=== PATIENT | female | born 1950 | race Caucasian/White ===

== ENCOUNTER 2020-11-15 21:17 | Emergency (ER) | payer OTHER ==
[~2020-11-15] VITALS: Ht 154.9 cm; Wt 72.6 kg
[~2020-11-15 21:17] MED LIST: CLOP75TA PO
--- NOTE | 2020-11-15 21:40 | NUR ---
TO LOBBY A/W BED AMBULATORY
[2020-11-15 21:46] VITALS: BP 159/78
[2020-11-15] MEDS ORDERED: ONDANSETRON 4 MG ODT PO ONE (22:00)
--- NOTE | 2020-11-15 22:00 | NUR ---
SEEN AND EXAMINED BY JAMES WITH ORDERS AND CARRIED OUT
--- NOTE | 2020-11-15 22:40 | NUR ---
MEDICATED PER ERMDS ORDER, TOLERATED WELL
[2020-11-15 23:50] VITALS: BP 128/80
== END 2020-11-15 23:50 | disposition home or self-care (01) ==
LOC: MED 21:17
DX: R11.2 Nausea with vomiting, unspecified (principal)
CPT/HCPCS: 99283; Q0162

== ENCOUNTER 2021-06-12 13:01 | Emergency (ER) | payer OTHER ==
[~2021-06-12] VITALS: Ht 157.5 cm; Wt 57.6 kg
[2021-06-12 13:13] VITALS: BP 150/75
--- NOTE | 2021-06-12 13:17 | NUR ---
PT TO LOBBY.
--- NOTE | 2021-06-12 13:38 | NUR ---
ABY Salter at pt bedside for further evaluation.
--- NOTE | 2021-06-12 13:53 | NUR ---
XRAY BEDSIDE WITH PT
--- NOTE | 2021-06-12 14:00 | NUR ---
70 Y/O F BIB DAUGHTER FROM HOME, C/O L HAND 3RD DIGIT PAIN, SWELLING AFTER INJURY FOR 1 WEEK. DIGIT IS VISIBLY SWOLLEN, CAP REFILL <3, SENSATION INTACT, PT STATES SHE IS UNABLE TO FLEX AND EXTEND DIGIT. PMH: HTN MED: HYDROCHLOROTHIAZIDE, VITAMIN D NKA
[2021-06-12] MEDS ORDERED: NAPR-54 PO (14:35)
[2021-06-12 14:56] VITALS: BP 150/75
--- NOTE | 2021-06-12 14:56 | NUR ---
Patient discharged with v/s stable. Written and verbal after care instructions given FINGER SPRAIN and explained. Patient alert, oriented and verbalized understanding of instructions. Ambulatory with steady gait. All questions addressed prior to discharge. ID band removed. Patient advised to follow up with PMD. Rx of NAPROXEN 500MG PO BID PRN PAIN given. Patient educated on indication of medication including possible reaction and side effects. Opportunity to ask questions provided and answered.
== END 2021-06-12 14:56 | disposition home or self-care (01) ==
LOC: MED 13:01
DX: M79.645 Pain in left finger(s) (principal); J45.909 Unspecified asthma, uncomplicated; I10 Essential (primary) hypertension; Z79.899 Other long term (current) drug therapy
CPT/HCPCS: 73130; 99283